=== PATIENT | female | born 1955 | race Caucasian/White ===

== ENCOUNTER 2021-04-05 12:05 | Emergency (ER) | payer MEDICARE, OTHER ==
[2021-04-05 13:13] LABS: HEMOGLOBIN 14.6 gm/dl (12.3-15.3); RED BLOOD COUNT 4.52 M/UL (4.00-5.10); WHITE BLOOD COUNT 15.9 K/UL (4.5-11.0)
[2021-04-05 13:47] LABS: BUN/CREATININE RATIO 23 (0-10)
[2021-04-05] MEDS ORDERED: MACROBID 100 M100 M1 PO (14:46)
== END 2021-04-05 14:58 | disposition home or self-care (01) ==
LOC: ER1 12:05
PROVIDERS: Nurse Practitioner
DX: N39.0 Urinary tract infection, site not specified (principal); I10 Essential (primary) hypertension; E11.9 Type 2 diabetes mellitus without complications; Z20.822 Contact with and (suspected) exposure to COVID-19
CPT/HCPCS: 70450; 70486; 73502; 73552; 80053; 81001; 82550; 82553; 83874; 84484; 85025; 93005; 99284; U0002

== ENCOUNTER → 2021-04-11 | Outpatient (CLI) | payer MEDICARE, OTHER ==
[~2021-04-11] MED LIST: MACROBID 100 M100 M1 PO
== END ==
LOC: KOH-I 14:26
DX: M79.601 Pain in right arm (principal)
CPT/HCPCS: 73060

== ENCOUNTER → 2021-12-07 | Outpatient (CLI) | payer MEDICARE, OTHER | LOC: KOH-I 15:47 | DX: N64.4 Mastodynia (principal) | CPT/HCPCS: 71046 ==

== ENCOUNTER 2021-12-27 22:37 | Emergency (ER) | payer MEDICARE, OTHER ==
[2021-12-27 23:38] LABS: HEMOGLOBIN 14.1 gm/dl (12.3-15.3); RED BLOOD COUNT 4.48 M/UL (4.00-5.10); WHITE BLOOD COUNT 9.1 K/UL (4.5-11.0)
[2021-12-28 00:01] LABS: BUN/CREATININE RATIO 21 (0-10)
== END 2021-12-28 03:15 | disposition home or self-care (01) ==
LOC: ER1 22:37
PROVIDERS: Physician Assistant
DX: R23.3 Spontaneous ecchymoses (principal)
CPT/HCPCS: 80053; 85025; 85610; 85730; 99283